=== PATIENT | male | born 1940 | race Caucasian/White ===

== ENCOUNTER 2016-09-22 11:10 | Day surgery (SDC) | payer MEDICARE, OTHER ==
--- NOTE | ~2016-09-22 | CN ---
Consultation Report [place] [id number] [facility]. [address] NAME: SHANIQUE RUSSELL : [birth year] STATUS : [facility] UNIT#: [id number] AGE: 76 ADM/REG DATE : 09/22/16 MR#: [id number] REPORT SERV DATE: 09/22/16 DICTATED BY: YVONNE SPARKS DATE: 09/22/16 REPORT STATUS : Draft TRANSCRIBED BY: MODL DATE: 09/22/16 CONSULTATION DATE OF CONSULTATION: Dear Dr. Hansen and Dr. Toribio: Thank you for requesting my opinion regarding evaluation and management of Mr. Shanique Russell's recently diagnosed left lung adenocarcinoma and evaluation for mediastinal staging. Mr. Russell is an extremely pleasant 76-year-old gentleman with a significant past medical history of Hodgkin's lymphoma, status post six cycles of ABVD, who recently underwent a CT-guided needle biopsy on 07/20/2016 that demonstrated adenocarcinoma predominantly lepidic pattern with minor acinar and papillary components. The patient is a poor candidate for thoracic surgical intervention and is being sent for evaluation for mediastinal staging for anticipated SBRT therapy. The patient states that he has chronic shortness of breath well localized to the chest, nonradiating with no significant alleviating or exacerbating factors. REVIEW OF SYSTEMS: A detailed 14-point review of systems was completed. Pertinent positives and negatives are listed above. HOME MEDICATIONS: Reviewed and located in the paper chart. PAST MEDICAL HISTORY: 1. Lymphoma. 2. Coronary artery disease. PAST SURGICAL HISTORY: T1 to T3 Hodgkin's lymphoma, status post laminectomy in 2007. FAMILY HISTORY: Unremarkable. SOCIAL HISTORY: The patient is a prior smoker. He is and has no history of alcohol or illicit drug abuse. PHYSICAL EXAMINATION: VITAL SIGNS: Reviewed and located in the paper chart. GENERAL: No acute distress. Able to communicate in full paragraphs at a time. HEENT: Normocephalic, atraumatic. Pupils are equal, round, and reactive to light and accommodation. Posterior oropharynx is clear. NECK: No JVD. No LAD. Trachea midline. CARDIOVASCULAR: Regular rate and rhythm. S1 and S2 present. LUNGS: Clear to auscultation bilaterally. ABDOMEN: Nontender, nondistended. Soft. Positive bowel sounds. Consultation Report [place] [address] [place]. [address] NAME: SHANIQUE RUSSELL : [birth year] STATUS : [facility] PAT#: [id number] AGE: 76 ADM/REG DATE : 09/22/16 MR#: [id number] REPORT SERV DATE: 09/22/16 DICTATED BY: YVONNE SPARKS DATE: 09/22/16 REPORT STATUS : Draft TRANSCRIBED BY: TOSIN DATE: 09/22/16 EXTREMITIES: No clubbing, cyanosis, or edema. SKIN: No new rashes, lesions, or ulcers. PSYCHIATRIC: Alert and oriented x3. Appropriate mood and affect. Appropriate insight and judgment. NEUROLOGIC: 5/5 strength in upper and lower extremities. Cranial nerves 2 through 12 intact. Gait not tested. DTRs not performed. IMAGING: PET-CT scan performed at [facility] was personally reviewed by me and I agree with the following interpretation. 1. Mild lymph node prominence in the mediastinum with stated history of Hodgkin's lymphoma. Uptake is mild. Involves a precarinal as well as aortopulmonary window, hilar aspects of the chest. This may be related to granulomatous disease. 2. Hypermetabolic left pleural-based lung nodule. 3. Hypermetabolic focus in the right colon. See path report, 07/20/2016. Left lower lobe lung CT-guided core biopsy adenocarcinoma. ASSESSMENT AND PLAN: Mr. Shanique Russell is an extremely pleasant 76-year-old gentleman with a prior history of Hodgkin's lymphoma and recently diagnosed left lower lobe adenocarcinoma with significant pulmonary and cardiac disease, who presents for formal evaluation for mediastinal staging. The patient is anticipated to undergo SBRT therapy by Dr. Toribio. PET CT scan was concerning for multiple mediastinal lymph nodes with uptake, which should be consistent with a pattern of granulomatous disease, occult lymphoma, or micrometastatic disease from his primary left lower lobe lung adenocarcinoma. At this point, Mr. Russell needs an appropriate diagnostic intervention. We discussed in detail potential options including thoracic surgical biopsy or EBUS bronchoscopy. After discussing the risks and benefits of each of these options, we agreed to proceed forward with EBUS. The patient is aware that EBUS bronchoscopy is associated with potential life- threatening risks including lung collapse, respiratory failure, and even . RECOMMENDATIONS: A summary of my recommendations are as follows, proceed with EBUS bronchoscopy. Thank you for allowing me to participate in Mr. Russell's care. Sincerely, LITTLE/TOSIN Yvonne Sparks M.D. Consultation Report [address] [address] NAME: DOTTIESHANIQUE RAY : [birth year] STATUS : [facility] PAT#: [id number] AGE: 76 ADM/REG DATE : 09/22/16 MR#: [id number] REPORT SERV DATE: 09/22/16 DICTATED BY: YVONNE SPARKS DATE: 09/22/16 REPORT STATUS : Draft TRANSCRIBED BY: TOSIN DATE: 09/22/16 / [id number] CC: Manda Nascimento
--- NOTE | ~2016-09-22 | EGD ---
EGD REPORT [facility] [address] [address] NAME: SHANIQUE RUSSELL : 42 STATUS : [facility]#: [id number] AGE: 76 ADM/REG DATE : 09/22/16 MR#: [id number] REPORT SERV DATE: 09/22/16 DICTATED BY: VIANCA SPARKS DATE: 09/22/16 REPORT STATUS : Draft TRANSCRIBED BY: [facility] DATE: 09/22/16 Pulmonology Patient Name: Shanique Russell Procedure Date: 09/22/2016 2:20 PM Date of : 1940 Attending MD: GLADYS SPARKS MD Procedure Date No Time: 09/22/2016 Procedure: EBUS Indications: LLL Lung cancer, needs mediastinal staging Providers: GLADYS SPARKS MD Referring MD: Federico Toribio Medicines: Lidocaine 2% 20 mL Complications: No immediate complications Procedure: Pre-Anesthesia Assessment: - ASA Grade Assessment: IV - A patient with severe systemic disease that is a constant threat to life. - A History and Physical has been performed. Patient meds and allergies have been reviewed. The risks and benefits of the procedure and the sedation options and risks were discussed with the patient. All questions were answered and informed consent was obtained. Patient identification and proposed procedure were verified prior to the procedure by the physician and the nurse in the procedure room. Mental Status Examination: alert and oriented. Airway Examination: normal oropharyngeal airway. Respiratory Examination: clear to auscultation. CV Examination: normal and RRR, no murmurs, no S3 or S4. ASA Grade Assessment: IV - A patient with severe systemic disease that is a constant threat to life. After reviewing the risks and benefits, the patient was deemed in satisfactory condition to undergo the procedure. The anesthesia plan was to use general anesthesia. Immediately prior to administration of medications, the patient was re-assessed for adequacy to receive sedatives. The heart rate, respiratory rate, oxygen saturations, blood pressure, adequacy of pulmonary ventilation, and response to care were monitored throughout the procedure. The physical status of the patient was re-assessed after the procedure. After obtaining informed consent, the Bronchoscope was introduced through the mouth, via laryngeal mask airway and advanced to the tracheobronchial tree. the BF [id number] was introduced through the mouth, via laryngeal mask airway and advanced to the tracheobronchial tree. The procedure was accomplished EGD REPORT [address] [address] NAME: SHANIQUE RUSSELL : 42 STATUS : [facility] PAT#: [id number] AGE: 76 ADM/REG DATE : 09/22/16 MR#: [id number] REPORT SERV DATE: 09/22/16 DICTATED BY: VIANCA SPARKS DATE: 09/22/16 REPORT STATUS : Draft TRANSCRIBED BY: [employer] DATE: 09/22/16 without difficulty. The patient tolerated the procedure well. Findings: The laryngeal mask airway is in normal position. The vocal cords move normally with breathing. The subglottic space is normal. The trachea is of normal caliber. The bettina is sharp. The tracheobronchial tree was examined to at least the first subsegmental level. Bronchial mucosa and anatomy are normal; there are no endobronchial lesions, and no secretions. EBUS TBNA of lymph node level 11R x 4 passes for cytology EBUS TBNA of lymph node level 4R x 6 passes for cytology EBUS TBNA of lymph node level 7 x 6 passes for cytology EBUS TBNA of lymph node level 4L x 4 passes for cytology EBUS TBNA of lymph node level 11L x 4 passes for cytology Impression: Rapid On-Site Evaluation (SHRUTHI): Preliminary cytology is suggestive of a "all addy stations demonstrated lymphocytes, no tumor seen" (final results are pending). Recommendation: - Await test results. - Chest X-ray. - Follow up with referring physician, Dr. Toribio. Attending Participation: I personally performed the entire procedure. GLADYS SPARKS MD 09/22/2016 4:22 PM This report has been signed electronically. Number of Addenda: 0 Note Initiated On: 09/22/2016 2:20 PM [address] [id number]
[~2016-09-22 11:10] MED LIST: ASAB PO; BREO ELLIPTA 21 EACH INH; BRILINTA90 MG PO; COREG12 PO; COREG6 PO; KDUR20 PO; LIPITOR40 PO; PLAVIX PO; PRAVACHOL40 MG PO; PRIN5 PO; PROAIR HFA INH; SPIRIVA RESPIMAT INH; WELLXL150 PO
[2016-09-22 11:45] LABS: BASOPHILS 0.6 %; BASOPHILS ABSOLUTE 0.03 10/3/uL (0.0-0.16); EOSINOPHILS 3.6 %; EOSINOPHILS ABSOLUTE 0.17 10/3/uL (0.0-0.53); IMMATURE GRANULOCYTES 0.2 %; IMMATURE GRANULOCYTES ABSOLUTE 0.01 10/3/uL (0.0-0.11); LYMPHOCYTES 22.2 %; LYMPHOCYTES ABSOLUTE 1.05 10/3/uL (0.67-4.30); MEAN CORPUS HGB CONC 34.2 g/dL (32.0-36.0); MEAN CORPUSCULAR HEMOGLOB 34.7 pg (26.0-34.0); MEAN CORPUSCULAR VOLUME 101.5 fL (80-100); MEAN PLATELET VOLUME 10.8 fL (9.2-13.0); MONOCYTES 9.3 %; MONOCYTES ABSOLUTE 0.44 10/3/uL (0.21-1.20); NEUTROPHILS 64.1 %; NEUTROPHILS ABSOLUTE 3.04 10/3/uL (2.02-8.40); PLATELET COUNT 132 10/3/uL (150-400); RBC DISTRIBUTION WIDTH 14.9 % (12.0-16.0); RED CELL COUNT 3.31 10/6/uL (4.7-6.1)
[2016-09-22 11:46] LABS: HEMATOCRIT 33.6 % (40.0-51.0); HEMOGLOBIN 11.5 g/dL (13.6-17.8); MANUAL DIFF NO %; WHITE BLOOD CELLS 4.7 10/3/uL (4.5-10.5)
[2016-09-22 11:51] LABS: INTERNATIONAL NORMAL RATI 1.1 UNITS (-); PROTIME (NOT ORD) 13.9 SEC (12.0-14.5)
[2016-09-22 11:52] LABS: PARTIAL THROMBO TIME 40.8 SEC (22.5-37.2)
[2016-09-22 11:58] LABS: BUN (BLOOD UREA NITROGEN) 7 MG/DL (6-23); CALCIUM, SERUM 8.5 MG/DL (8.5-10.4); CHLORIDE, SERUM 102 MMOL/L (96-112); CO2 (CARBON DIOXIDE) 28 MMOL/L (24-34); CREATININE 1.04 MG/DL (0.70-1.30); GFR AFRICAN AMERICAN 81 ML/MIN (>=60); GFR NON AFRICAN AMERICAN 70 ML/MIN (>=60); GLUCOSE, SERUM 93 MG/DL (60-99); POTASSIUM, SERUM 4.2 MMOL/L (3.5-5.3); SODIUM, SERUM 138 MMOL/L (135-148)
== END 2016-09-22 18:18 | disposition home or self-care (01) ==
LOC: DMU 11:10
PROVIDERS: Anesthesiology; Internal Medicine
PROC: 07974ZX Drainage of Thorax Lymphatic, Percutaneous Endoscopic Approach, Diagnostic (ICD-10-PCS; principal; 2016-09-22 11:00)
PROC: BB4CZZZ Ultrasonography of Mediastinum (ICD-10-PCS; 2016-09-22 11:00)
DX: C34.32 Malignant neoplasm of lower lobe, left bronchus or lung (principal); Z85.72 Personal history of non-Hodgkin lymphomas; I25.10 Atherosclerotic heart disease of native coronary artery without angina pectoris; I10 Essential (primary) hypertension; E78.5 Hyperlipidemia, unspecified; J44.9 Chronic obstructive pulmonary disease, unspecified; Z87.891 Personal history of nicotine dependence; Z79.82 Long term (current) use of aspirin; Z79.51 Long term (current) use of inhaled steroids; Z79.01 Long term (current) use of anticoagulants; Z79.899 Other long term (current) drug therapy
CPT/HCPCS: 36415; 71010; 80048; 85025; 85610; 85730; 86900; 86901; 88172; 88173; 88177; 88305; 93005; A9270-GY; C1725; J2405; J3010